=== PATIENT | female | born 1940 | race Caucasian/White ===

== ENCOUNTER 2016-06-09 01:37 | Inpatient (IN) | payer MEDICARE ==
[~2016-06-09] VITALS: Ht 162.6 cm; Wt 60.3 kg
[~2016-06-09 01:37] MED LIST: ASPI-621 PO; BISO5TAB2 PO; DIGO125T PO; DIGO125T10 PO; FLUT1DIS3 INH; FURO-92 PO; LEVA15HF2 INH; LISI-167 PO; OXYC5TAB3 PO; POTA20TA14 PO; RIVA20TA PO; WARF2.5T PO-COUM
[2016-06-09] MEDS ORDERED: DILTIAZEM 5 MG/ML, 5ML ONE (01:44)
[2016-06-09] MEDS ORDERED: DILTIAZEM 5 MG/ML, 5ML IV ONE (02:00)
[2016-06-09] MEDS ORDERED: ASPIRIN 81 MG TABLET CHEW PO ONE (02:00)
[2016-06-09 02:03] LABS: HEMOGLOBIN 12.6 g/dL (11.7-16.4)
[2016-06-09 02:16] LABS: BLOOD UREA NITROGEN 17 mg/dL (7-18)
[2016-06-09 02:23] LABS: IS PT STATUS REG ER OR PRE ER? YES
[2016-06-09] MEDS ORDERED: DIGO250T PO (02:35)
[2016-06-09] MEDS ORDERED: WARFARIN 2.5 MG TABLET PO-COUM SCH ×2 (03:00→20:30)
[2016-06-09] MEDS ORDERED: ONDANSETRON 2MG/ML, 2ML IVPush PRN (03:00)
[2016-06-09] MEDS ORDERED: HEPARIN 5,000 UNITS/ML, 1ML ONE (03:16)
[2016-06-09] MEDS: HEPARIN 5,000 UNITS/ML, 1ML SQ SCH ×3 (03:19→19:30)
[2016-06-09] MEDS ORDERED: TRAZODONE 50MG TABLET PO PRN (03:30)
[2016-06-09] MEDS ORDERED: ONDANSETRON ODT 4 MG PO PRN (03:30)
[2016-06-09 07:15] VITALS: BP 119/80
[2016-06-09] MEDS: POTASSIUM CHLORIDE 20 MEQ TAB.ER.PRT PO SCH (08:00)
[2016-06-09] MEDS ORDERED: LISINOPRIL 10 MG TABLET PO SCH (09:00)
[2016-06-09] MEDS ORDERED: TEMPLATE NON-FORMULARY MED. (Bisoprolol Fumarate 5 MG) HOMEMEDPO SCH (09:00)
[2016-06-09] MEDS: FUROSEMIDE 40 MG TABLET PO SCH (09:00)
[2016-06-09] MEDS: DIGOXIN 0.25 MG TABLET PO SCH (09:00)
[2016-06-09] MEDS: FLUTICASONE/VILANTEROL 100-25MCG/INH INH SCH (09:00)
[2016-06-09] MEDS: ASPIRIN 81 MG TABLET EC PO SCH (09:00)
[2016-06-09 10:58] LABS: IS PT STATUS REG ER OR PRE ER? NO
[2016-06-09 13:08] VITALS: BP 117/82
[2016-06-09 15:06] LABS: IS PT STATUS REG ER OR PRE ER? NO
[2016-06-09] MEDS ORDERED: METOPROLOL TARTRATE 25 MG TABLET PO SCH (18:00)
[2016-06-09 20:28] VITALS: BP 105/69
[2016-06-10 02:39] VITALS: BP 114/80
[2016-06-10] MEDS ORDERED: METOPROLOL 1 MG/ML, 5ML ONE (03:09)
[2016-06-10] MEDS ORDERED: POTASSIUM CHLORIDE 20 MEQ TAB.ER.PRT PO ONE (03:30)
[2016-06-10] MEDS ORDERED: METOPROLOL 1 MG/ML, 5ML IVPush ONE ×3 (03:30→06:00)
[2016-06-10] MEDS: METOPROLOL TARTRATE 50 MG TABLET PO SCH ×2 (05:07→17:54)
[2016-06-10 05:37] LABS: HEMOGLOBIN 12.5 g/dL (11.7-16.4)
[2016-06-10 05:59] LABS: BLOOD UREA NITROGEN 12 mg/dL (7-18)
[2016-06-10 08:14] VITALS: BP 139/86
[2016-06-10] MEDS: FLUTICASONE/VILANTEROL 100-25MCG/INH INH SCH (08:33)
[2016-06-10] MEDS: FUROSEMIDE 40 MG TABLET PO SCH (08:33)
[2016-06-10] MEDS: ASPIRIN 81 MG TABLET EC PO SCH (08:33)
[2016-06-10] MEDS: DIGOXIN 0.25 MG TABLET PO SCH (08:33)
[2016-06-10] MEDS: POTASSIUM CHLORIDE 20 MEQ TAB.ER.PRT PO SCH (08:33)
[2016-06-10] MEDS ORDERED: DIAZEPAM 5 MG/ML, 2ML ONE (09:18)
[2016-06-10 09:22] VITALS: BP 115/84
[2016-06-10] MEDS ORDERED: DILTIAZEM 5 MG/ML, 5ML IVPush ONE (09:30)
[2016-06-10 13:31] VITALS: BP 127/71
[2016-06-10 17:53] VITALS: BP 127/89
[2016-06-10] MEDS ORDERED: WARFARIN 2.5 MG TABLET PO-COUM ONE (18:00)
[2016-06-10 20:01] VITALS: BP 113/79
[2016-06-11] MEDS: DILTIAZEM 5 MG/ML, 5ML IVPush PRN ×3 (01:04→23:05)
[2016-06-11 02:14] VITALS: BP 118/77
[2016-06-11] MEDS: METOPROLOL TARTRATE 50 MG TABLET PO SCH (06:20)
[2016-06-11 06:36] LABS: BLOOD UREA NITROGEN 12 mg/dL (7-18)
[2016-06-11 07:50] VITALS: BP 130/69
[2016-06-11] MEDS: DIGOXIN 0.25 MG TABLET PO SCH (08:28)
[2016-06-11] MEDS: ASPIRIN 81 MG TABLET EC PO SCH (08:28)
[2016-06-11] MEDS: POTASSIUM CHLORIDE 20 MEQ TAB.ER.PRT PO SCH (08:29)
[2016-06-11] MEDS: FLUTICASONE/VILANTEROL 100-25MCG/INH INH SCH (08:29)
[2016-06-11] MEDS: FUROSEMIDE 40 MG TABLET PO SCH (08:29)
[2016-06-11] MEDS: LOSARTAN 25MG TABLET PO SCH (10:35)
[2016-06-11 13:10] VITALS: BP 143/75
[2016-06-11] MEDS: METOPROLOL TARTRATE 25 MG TABLET PO SCH (17:58)
[2016-06-11] MEDS ORDERED: WARFARIN 2.5 MG TABLET PO-COUM ONE (18:00)
[2016-06-11 18:26] VITALS: BP 119/77
[2016-06-12 01:51] VITALS: BP 113/73
[2016-06-12] MEDS: METOPROLOL TARTRATE 25 MG TABLET PO SCH ×2 (04:49→16:28)
[2016-06-12 06:57] VITALS: BP 139/83
[2016-06-12] MEDS: POTASSIUM CHLORIDE 20 MEQ TAB.ER.PRT PO SCH (08:22)
[2016-06-12] MEDS: LOSARTAN 25MG TABLET PO SCH (08:23)
[2016-06-12] MEDS: ASPIRIN 81 MG TABLET EC PO SCH (08:24)
[2016-06-12] MEDS: FUROSEMIDE 40 MG TABLET PO SCH (08:24)
[2016-06-12] MEDS: DIGOXIN 0.25 MG TABLET PO SCH (08:24)
[2016-06-12] MEDS: FLUTICASONE/VILANTEROL 100-25MCG/INH INH SCH (08:25)
[2016-06-12] MEDS: DILTIAZEM 60 MG TABLET PO SCH ×3 (09:55→21:00)
[2016-06-12 12:35] VITALS: BP 104/62
[2016-06-12 16:10] VITALS: BP 116/79
[2016-06-12] MEDS ORDERED: WARFARIN 2 MG TABLET PO-COUM SCH (18:00)
[2016-06-12 20:00] VITALS: BP 99/63
[2016-06-13 02:40] VITALS: BP 112/63
[2016-06-13] MEDS ORDERED: METO25TA35 PO (06:15)
[2016-06-13] MEDS ORDERED: DILT60TA27 PO (06:15)
[2016-06-13] MEDS ORDERED: LOSA25TA2 PO (06:15)
[2016-06-13 07:15] VITALS: BP 117/70
[2016-06-13] MEDS ORDERED: DILT60TA30 PO (07:16)
[2016-06-13] MEDS: POTASSIUM CHLORIDE 20 MEQ TAB.ER.PRT PO SCH (07:44)
[2016-06-13] MEDS: FUROSEMIDE 40 MG TABLET PO SCH (07:45)
[2016-06-13] MEDS: LOSARTAN 25MG TABLET PO SCH (07:45)
[2016-06-13] MEDS: DILTIAZEM 60 MG TABLET PO SCH (07:45)
[2016-06-13] MEDS: ASPIRIN 81 MG TABLET EC PO SCH (07:46)
[2016-06-13] MEDS: METOPROLOL TARTRATE 25 MG TABLET PO SCH (07:46)
[2016-06-13] MEDS: FLUTICASONE/VILANTEROL 100-25MCG/INH INH SCH (07:57)
[2016-06-13] MEDS: DIGOXIN 0.25 MG TABLET PO SCH (08:00)
[2016-06-13 08:02] VITALS: BP 125/85
[2016-06-13] MEDS ORDERED: WARFARIN 2 MG TABLET PO-COUM SCH (18:00)
== END 2016-06-13 09:41 | disposition home or self-care (01) | DRG 292 ==
LOC: ED 02:07 → EDIP 02:37 → 5SO 06:49 → DCLOUNGE 06-13 09:18
PROVIDERS: ADMIT Internal Medicine; ATTEND Internal Medicine
DX: I13.0 Hypertensive heart and chronic kidney disease with heart failure and stage 1 through stage 4 chronic kidney disease, or unspecified chronic kidney disease (principal); N17.9 Acute kidney failure, unspecified; E87.1 Hypo-osmolality and hyponatremia; I47.2 Ventricular tachycardia; I42.9 Cardiomyopathy, unspecified; E78.5 Hyperlipidemia, unspecified; J45.909 Unspecified asthma, uncomplicated; I48.91 Unspecified atrial fibrillation; E86.1 Hypovolemia; I48.2 Chronic atrial fibrillation; I05.9 Rheumatic mitral valve disease, unspecified; N18.9 Chronic kidney disease, unspecified; Z79.01 Long term (current) use of anticoagulants; Z95.1 Presence of aortocoronary bypass graft; Z95.2 Presence of prosthetic heart valve; Z79.899 Other long term (current) drug therapy; Z82.49 Family history of ischemic heart disease and other diseases of the circulatory system; Z87.891 Personal history of nicotine dependence
CPT/HCPCS: 36415; 71010; 80048; 80162; 82040; 83735; 83880; 84100; 84484; 85025; 85610; 93005; 96374; J1644

== ENCOUNTER 2016-09-15 10:07 | Day surgery (SDC) | payer MEDICARE ==
[~2016-09-15] VITALS: Ht 162.6 cm; Wt 62.7 kg
[~2016-09-15 10:07] MED LIST changes: +DIGO250T PO; +DILT60TA27 PO; +DILT60TA30 PO; +LOSA25TA2 PO; +METO25TA35 PO
[2016-09-15 10:41] VITALS: BP 114/72
[2016-09-15] MEDS ORDERED: FLUT1DIS3 INH (11:01)
[2016-09-15] MEDS ORDERED: ASPI-621 PO (11:01)
[2016-09-15] MEDS ORDERED: FURO20TA3 PO (11:01)
[2016-09-15] MEDS ORDERED: METO50TA82 PO (11:01)
[2016-09-15] MEDS ORDERED: DIGO250T PO (11:01)
[2016-09-15] MEDS ORDERED: DILT60TA30 PO (11:01)
[2016-09-15] MEDS ORDERED: POTA20TA14 PO (11:01)
[2016-09-15] MEDS ORDERED: WARF2.5T73 PO (11:01)
[2016-09-15] MEDS ORDERED: PROPOFOL 10 MG/ML, 20ML ONE (12:07)
[2016-09-15] MEDS ORDERED: GLYCOPYRROLATE 0.2MG/1ML ONE (12:07)
[2016-09-15] MEDS ORDERED: METO25TA35 PO (12:40)
== END 2016-09-15 13:45 | disposition home or self-care (01) ==
LOC: CACL 10:07
PROVIDERS: ATTEND Internal Medicine Cardiovascular Disease
DX: I48.91 Unspecified atrial fibrillation (principal); E78.5 Hyperlipidemia, unspecified; E11.9 Type 2 diabetes mellitus without complications; I10 Essential (primary) hypertension
CPT/HCPCS: 36415; 80162; 85610; 92960; 93005; J2704; J3490